=== PATIENT | female | born 1975 | race Caucasian/White ===

== ENCOUNTER 2016-10-06 04:17 | Emergency (ER) | payer BC ==
[~2016-10-06] VITALS: Ht 165.1 cm; Wt 74.8 kg
[~2016-10-06 04:17] MED LIST: CIPRO 500MG TA500 MG PO; METFORMIN500 MG PO; NAPROSYN500 M1 PO; NOMEDS XX; ROBAXIN-750750 MG PO
[2016-10-06] MEDS ORDERED: LISINOPRIL10 MG PO (04:28)
--- NOTE | 2016-10-06 05:51 | Emergency Room Report ---
History of Present Illness Time Seen by [id number] Presenting Problem in Triage Pt arrived:Walked Presenting Problem:PATIENT REPORTS SHE FELL DOWN 4 STEPS, STATES SHE WAS WEARING FLIP FLOPS AND HER FEET GOT SLIPPERY. 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 N Clinical Suspician of Infection? Y Mental Status: 1 - Regular (Normal Baseline) Sepsis Risk:Possible Sepsis Risk Have you (or family members/close friends) recently traveled outside the [place]? N If Yes, where/when: Have you had exposure to infectious disease within the past month? TB? Other? 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 No Angina: Yes NV: No Hypertension? Yes Hyperlipidemia? Yes CHF? No DVT? No PE? No COPD? No Asthma? Yes Anemia? No GERD? No Gastric ulcers? No GI Bleed? No Hernia? No Thyroid Problems? No Hypothyroidism? No CVA? No Seizures? No Diabetes? Yes Insulin Dependent: No Insulin Pump: No Home FSBS? No Renal Insuffiency? No End Stage Renal Disease? No UTI? Yes Stones? No BPH? No GB Disease: No Nephritic Syndrome? No Asplenia? No Hepatitis? No Sickle Cell Disease? No Arthritis? No Migraines? No Cataracts? No Glaucoma? No MRSA? No HIV? No TB? No Anxiety? No Depression? No Cancer? No More? No Immunization Hx DT/Tetanus 1-4 YRS Flu NEVER Pneumonia NEVER Surgical Hx Previous Surgery?Y Appendix X 2 Tubal Ligation BACK SURGERY X 2 WEB COORDINATOR Hx LMP 2 Weeks Ago Family History Family Hx Diabetes Yes CAD No Hypertension Yes Hyperlipidemia Yes Cancer Yes TB No Social History Smoking Hx Smoker: Current Every Day Smoker Tobacco: Yes Type Cigarettes Packs/day 1 1/2 - 2 Packs Alcohol Alcohol: No Drugs none Review of Systems All Other Systems Reviewed and Negative Constitutional denies fever Eyes denies drainage ENT denies: ear pain, epistaxis, throat pain. Respiratory denies cough, denies shortness of breath, denies wheezing Cardiovascular denies chest pain, denies palpitations, denies syncope Gastrointestinal see HPI, abdominal pain, denies nausea, denies vomiting Genitourinary denies: dysuria, frequency, hesitancy, hematuria. Musculoskeletal see HPI, back pain, denies joint pain, denies joint swelling, denies neck pain Skin denies rash Psychiatric/Neurological denies headache, denies seizure Physical Exam Vital Signs Vital Signs Date Time Temp Pulse Resp B/P Pulse O2 O2 Flow FiO2 Ox Delivery Rate 10/06 0537 84 20 121/71 97 10/06 0607 91 20 138/73 98 10/06 0601 20 10/06 0422 99.7 111 20 161/76 99 - WBC >12,000 or <4,000 or 10% bands? 2 or more SIRS Criteria Met? B/P:138/73 MAP:104 Creatinine >2.0? UA output<0.5ml/kg/hr for 2 hrs? Platelet count >100,000? Lactate >2.0mmol/1? INR >1.2 or PTT > than 60 sec? Evidence of Organ Dysfunction? Provider documented clinical suspician of infection? Y Sepsis Criteria Count: 2 Sepsis Risk: Possible Sepsis Risk General Appearance no apparent distress Eye Exam - bilateral eye PERRL, bilateral eye EOMI Ear, Nose, Throat normal ENT inspection Neck non-tender Respiratory Status No: respiratory distress, tender on palpation. Lung Sounds bilateral: lungs clear. 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 No Results/Orders Laboratory Tests 10/06/16 0600: Sodium 135 L, Potassium 4.3, Chloride 99, Carbon Dioxide 31, BUN 14, Creatinine 0.7, Estimated Creat Clear 122, Estimated GFR (MDRD) 91, Glucose 281 H, Calcium 9.0, Total Bilirubin 0.1 L, AST 11 L, ALT 21, Alkaline Phosphatase 97, Total Protein 7.6, Albumin 3.3 L, Globulin 4.3 H, Albumin/Globulin Ratio 0.8 L, Amylase 55, Lipase 197, WBC 11.1 H, RBC 4.71, Hgb 14.3, Hct 43.6, MCV 92.7, RDW 13.7, Plt Count 204, MPV 10.0, Gran % 70.9, Gran # 7.9 H, Lymphocytes % 22.6, Monocytes % 4.3, Eosinophils % 1.5, Basophils % 0.6, Lymphocytes # 2.5, Monocytes # 0.5, Eosinophils # 0.2, Basophils # 0.1, PUBS MCHC 32.7, MCH 30.3 Current Medication Orders Sig/Anuj Start time Last Medication Dose Route Stop Time Status Admin Morphine Sulfate 4 MG ONCE ONE 10/06 599 DC 10/06 IV 10/06 600 06 Ondansetron HCl 4 MG ONCE ONE 10/06 599 DC 10/06 IV 10/06 600 06 Sodium Chloride 10 ML PRN PRN 10/06 599 AC IV 10/07 550 Morphine Sulfate 0 .STK-MED ONE 10/06 557 DC .ROUTE Ondansetron HCl 0 .STK-MED ONE 10/06 556 DC .ROUTE Orders Procedure Date/time Status DIET-NOTHING BY MOUTH 10/[address] ABD & PELVIS W/ CONTRAST 10/[address] SCAN REQ 10/07 551 Complete CHEST-AP VIEW ONLY 10/07 551 Active IV SALINE LOCK 10/07 551 Active URINALYSIS/COMPLETE 10/07 551 Active LIPASE 10/07 551 Complete COMPLETE METABOLIC PANEL 10/07 551 Complete CBC WITH AUTO DIFF 10/07 551 Complete AMYLASE 10/[address] SCAN REQUEST 10/06 0429 Active XRAY/CT/US XRAY/CT/US 1 XRAY chest, pelvis XR interpretation by reviewed by me Xray Results no fracture seen XRAY/CT/US 2 CT abdomen, pelvis, L-spine CT interpretation by discussed w/radiologist Time results known: 722 CT Results abnormal (see report) Departure Departure Time of Disposition 723 Disposition DC Home or Self Care(routine) Clinical Impression Primary Impression: Lumbar transverse process fracture Qualifiers: Encounter type: initial encounter Fracture type: closed Qualified Code: S32.009A - Unspecified fracture of unspecified lumbar vertebra, initial encounter for closed fracture Condition STABLE Patient Instructions DI for Low Back Pain Additional Instructions ice and alt with heat and see pcp today for close follow up Discharge Counseling Counseled pt/family regarding diagnosis, test results, medications/RX, follow up needs ED Critical Care Critical Care No at 0798
[2016-10-06 06:07] LABS: HEMOGLOBIN 14.3 g/dL (12.2-16.2); LYMPH # 2.5 K/mm3 (0.7-4.5); LYMPH % 22.6 % (10-50.0)
--- NOTE | 2016-10-06 06:33 | RADIOLOGY REPORT PS360 ---
PELVIS AP ONLY HISTORY: Fall with injury and pain FALL ORDERING PHYSICIAN: Justice Alamo MD PATIENT AGE: 41 years COMPARISON: None FINDINGS: No fracture or dislocation is evident. Mild osteoarthritic changes are present involving both hips. No lytic or blastic change apparent. IMPRESSION: 1. No acute fracture. 2. Osteoarthritis of the hips
--- NOTE | 2016-10-06 06:38 | RADIOLOGY REPORT PS360 ---
CT LUMBAR SPINE W/O CONTRAST CLINICAL INDICATION: Left-sided low back pain following injury. Prior lumbar surgery FALL ORDERING PHYSICIAN: Justice Alamo MD PATIENT AGE: 41 years COMPARISON: None TECHNIQUE:Axial, sagittal, and coronal images are generated and reviewed without contrast FINDINGS: There is normal alignment. Nondisplaced fracture involving the left transverse process of L1 and L2. There is generalized spondylosis of the lumbar spine with mild multilevel degenerative disc disease. Mild bulging disc L3-L4 L4-L5 and L5-S1. There is been prior laminectomy at L5-S1 with soft tissue density present at the laminectomy site. Mild multilevel facet hypertrophic changes are present. Incidental note is made of a 4 cm left ovarian cyst. IMPRESSION: 1. Nondisplaced fractures left transverse process of L1 and L2. 2. Lumbar spondylosis with degenerative disc disease and facet hypertrophic change. 3. 4 cm left ovarian cyst. Follow-up recommended
[2016-10-06 07:34] VITALS: BP 127/77
--- NOTE | 2016-10-06 08:06 | RADIOLOGY REPORT PS360 ---
CHEST-AP VIEW ONLY HISTORY: Pain following injury fall ORDERING PHYSICIAN: Justice Alamo MD PATIENT AGE: 41 years COMPARISON: 12/20/2013 FINDINGS: The cardiomediastinal silhouette and pulmonary vascularity are within normal limits. Chronic changes are present with coarsening of the bronchovascular markings. No lobar consolidation or collapse. No evidence of pneumothorax. No acute bony anomalies. IMPRESSION: Chronic change, no acute finding.
--- NOTE | 2016-10-06 09:40 | RADIOLOGY REPORT PS360 ---
CT ABD PELVIS W/ CONTRAST CLINICAL INDICATION: Right lower quadrant pain following injury FALL ORDERING PHYSICIAN: Justice Alamo MD PATIENT AGE: 41 years COMPARISON: None TECHNIQUE: Axial images obtained with sagittal and coronal reformats. PROCEDURE: Oral Contrast: None IV Contrast: 75 mL Isovue-370. FINDINGS: Lower thorax: No acute finding Abdomen and pelvis: There is a small area of decreased attenuation in the left hepatic lobe along the fissure for the ligamentum teres probably due to focal fatty infiltration. Follow-up may confirm. The spleen, adrenal glands, pancreas, gallbladder, and kidneys have an unremarkable CT appearance. There is a tiny umbilical hernia containing fat. No intestinal obstruction or free air. No evidence of perforation or bowel wall hematoma. Pelvis: The uterus is enlarged at the fundal region with some heterogeneous enhancement and lobularity consistent with fibroid involvement. There is a 4.3 cm left ovarian cyst. Outpatient pelvic ultrasound follow-up suggested to confirm resolution. No free fluid evident. No evidence of appendicitis or diverticulitis. There is reported appendectomy. There is a tiny umbilical hernia containing fat. No abdominal wall contusion or hematoma. Nondisplaced fractures involving the left L1 and L2 transverse process. There is lumbar spondylosis. Mild osteoarthritic changes are present involving the hips. IMPRESSION: 1. No acute intra-abdominal or pelvic pathology. 2. Nondisplaced fractures of the left L1 and L2 transverse process. 3. Enlarged heterogeneous uterus consistent with fibroid involvement with 4 cm left ovarian cyst. Outpatient pelvic ultrasound suggested for follow-up. 4. Nondisplaced left L1 and L2 transverse process fracture
--- OUTSIDE RECORDS SUMMARY | 2016-10-06 21:02 | External Medical Summary Rpt ---
Author Author , AJIT FONG Address Unknown Phone [email or web address] Care Team Providers Care Metal Rolling Mill Operator Name Role Phone RUDDY MANZANO, RUDDY Unavailable Unavailable NATACHA RUDDY NATACHA, ARNOLD Unavailable Unavailable NATACHA BROWN HEA, BROWN HEA Unavailable Unavailable [facility] Unavailable Unavailable ANESTHESIA, [facility] ANESTHESIA [facility] Un[facility], [facility] Unavailable Unavailable [facility] Unavailable Unavailable Purpose Continuity of Care Document - 12-20-2013 through 2016 Problems Code Diagnosis DOS Provider Status M5126 [facility] 06-04-2015 [facility] [place] RAL DISC ANESTHESIA DISPLACEMEN T LUMBAR RGN 3674 PRESBYOPIA 11-27-2014 [facility] 4660 ACUTE 10-27-2014 RUDDY MANZANO BRONCHITIS 5110 PLEURISY 12-20-2013 [facility] MENTION INC EFFUS/CURRE NT TB S16.1XXA STRAIN OF MUSCLE, FASCIA AND TENDON AT NECK LEVEL, INIT S32.009A UNSP FRACTURE OF UNSP LUMBAR VERTEBRA, INIT FOR CLOS FX W19.XXXA UNSPECIFIED FALL, INITIAL ENCOUNTER Procedures Procedure DOS Code Location Performer Comment ANESTHESI 39376 [facility] A LUMBAR 6 [place] [facility] ANESTHESI NOS A OPHTH 73026 OSVALDO PRATT [facility] 5 XM&EVAL COMPRE NEW PT 1/> VST RADIOLOGI 05253 [facility] CHEST 2 INC INC VIEWS FRONTAL&L ATERAL Encounters Encounter Start End Date Code Location Performer Type Date OFFICE 45236 ASHAJAYRO RUDDY OUTPATIEN 5 5 NATACHA NATACHA T [facility]IT [facility] T
--- OUTSIDE RECORDS SUMMARY | 2016-10-06 21:02 | External Medical Summary Rpt ---
Demographics Preferred Language Lao Marital Status Unknown Buddhism Affiliation Unknown Race Unknown Ethnic Group Unknown Author Author AJIT Address Unknown Phone Immunization No patient found.
--- OUTSIDE RECORDS SUMMARY | 2016-10-06 21:02 | External Medical Summary Rpt ---
Author Author , AJIT FONG Address Unknown Phone [email or web address] Care Team Providers Care Field Superintendent Name Role Phone RUDDY MANZANO, RUDDY Unavailable Unavailable NATACHA RUDDY NATACHA, ARNOLD Unavailable Unavailable NATACHA BROWN HEA, BROWN HEA Unavailable Unavailable [facility] Unavailable Unavailable ANESTHESIA, [facility] ANESTHESIA [facility], [facility] Unavailable Unavailable [facility], [facility] Unavailable Unavailable Purpose Continuity of Care Document - 12-20-2013 through 2016 Problems Code Diagnosis DOS Provider Status M5126 [facility] 06-04-2015 [facility] [place] R[facility] DISC ANESTHESIA DISPLACEMEN T LUMBAR RGN 3674 PRESBYOPIA 11-27-2014 [facility] 4660 ACUTE 10-27-2014 RUDDY NATACHA BRONCHITIS 5110 PLEURISY 12-20-2013 [facility] MENTION INC EFFUS/CURRE NT TB Procedures Procedure DOS Code Location Performer Comment ANESTHESI 76004 [facility] A LUMBAR 6 [place] [facility] ANESTHESI NOS A OPHTH 75517 [facility] 5 XM&EVAL COMPRE NEW PT 1/> VST RADIOLOGI 19889 [facility] CHEST 2 INC INC VIEWS FRONTAL&L ATERAL Encounters Encounter Start End Date Code Location Performer Type Date OFFICE 77224 RUDDY FOX OUTPATIEN 5 5 NATACHA NATACHA T VISIT [facility]UTES [facility] T
--- OUTSIDE RECORDS SUMMARY | 2016-10-06 21:02 | External Medical Summary Rpt ---
Author Author AJIT Forrest, [employer] Address Unknown Phone Unavailable Results Amylase [Enzymatic activity/volume] in Serum or Plasma Observa Value Referen Units Interpr Notes Date tion ce etation Range Amylase 25 - 115 U/L Normal No Oct 06 [Enzymati informati 2017 6:00 c on in AM activity/ source volume] data in Serum or Plasma Comprehensive metabolic 2000 panel in Serum or Plasma Observa Value Referen Units Interpr Notes Date tion ce etation Range Albumin/G 1.1 - 1.8 No Low No Oct 06 lobulin informati informati 2017 6:00 [Mass on in on in AM ratio] in source source Serum or data data Plasma Albumin 3.4 - 5.0 gm/dL Low No Oct 06 [Mass/vol informati 2017 6:00 ume] in on in AM Serum or source Plasma data Alkaline 46 - 116 U/L Normal No Oct 06 phosphata informati 2017 6:00 se on in AM [Enzymati source c data activity/ volume] in Serum or Plasma Bilirubin 0.2 - 1.0 mg/dL Low No Oct 06 .total informati 2017 6:00 [Mass/vol on in AM ume] in source Serum or data Plasma Urea 7 - 18 mg/dL Normal No Oct 06 nitrogen informati 2017 6:00 [Mass/vol on in AM ume] in source Serum or data Plasma Calcium 8.5 - mg/dL Normal No Oct 06 [Mass/vol 10.1 informati 2017 6:00 ume] in on in AM Serum or source Plasma data Chloride 98 - 107 mmoL/L Normal No Oct 06 [Moles/vo informati 2016 6:00 lume] in on in AM Serum or source Plasma data Carbon 21.0 - mmoL/L Normal No Oct 06 dioxide, 32.0 informati 2017 6:00 total on in AM [Moles/vo source lume] in data Serum or Plasma Creatinin 0.55 - mg/dL Normal No Oct 06 e 1.02 informati 2017 6:00 [Mass/vol on in AM ume] in source Serum or data Plasma Creatinin 50 - 200 ML/MIN Normal No Oct 06 e renal informati 2016 6:00 clearance on in AM source predicted data by Cockcroft -Gault formula Estimated 59- ML/MIN No REFERENCE Oct 06 informati RANGE: 2017 6:00 glomerula on in >60 AM r source ML/MIN/1. filtratio data 73 SQUARE n rate METERSIf (GF this patient is -A merican, then multiply theresult by 1.210. Globulin 1.3 - 3.2 gm/dL High No Oct 06 [Mass/vol informati 2016 6:00 ume] in on in AM Serum source data Glucose 74 - 106 mg/dL High No Oct 06 [Mass/vol informati 2016 6:00 ume] in on in AM Serum or source Plasma data Potassium 3.5 - 5.1 mmoL/L Normal No Oct 062016 6:00 [Moles/vo on in AM lume] in source Serum or data Plasma Sodium 136 - 145 mmoL/L Low No Oct 06 [Moles/vo ati 2016 6:00 lume] in on in AM Serum or source Plasma data Aspartate 15 - 37 U/L Low No Oct 06 informati 2016 6:00 aminotran on in AM sferase source [Enzymati data c activity/ volume] in Serum or Plasma Alanine 12 - 78 U/L Normal No Oct 06 aminotran informati 2016 6:00 sferase on in AM [Enzymati source c data activity/ volume] in Serum or Plasma Protein 6.4 - 8.2 gm/dL Normal No Oct 06 [Mass/vol informati 2016 6:00 ume] in on in AM Serum or source Plasma data Lipase [Enzymatic activity/volume] in Serum or Plasma Observa Value Referen Units Interpr Notes Date tion ce etation Range Lipase 73 - 393 U/L Normal No Oct 06 [Enzymati informati 2016 6:00 c on in AM activity/ source volume] data in Serum or Plasma CBC W Auto Differential panel in Blood Observa Value Referen Units Interpr Notes Date tion ce etation Range Basophils 0 - 0.2 K/MM3 Normal No Oct 06 inform2016 6:00 [#/volume on in AM ] in source Blood by data Automated count Basophils 0.1 - 2.0 % Normal No Oct 06 / informati 2016 6:00 leukocyte on in AM s in source Blood by data Automated count Eosinophi 0.0 - 0.4 K/mm3 Normal No Oct 06 ls informati 2016 6:00 [#/volume on in AM ] in source Blood by data Automated count Eosinophi 0.1 - % Normal No Oct 06 ls/100 12.0 informati 2016 6:00 leukocyte on in AM s in source Blood by data Automated count Granulocy 1.8 - 7.8 K/mm3 High No Oct 06 pasquale informati 2016 6:00 [#/volume on in AM ] in source Blood by data Automated count Granulocy 37.0 - % Normal No Oct 06 pasquale/100 80.0 informati 2016 6:00 leukocyte on in AM s in source Blood by data Automated count Hematocri 37.0 - % Normal No Oct 06 t [Volume 47.0 informati 2016 6:00 on in AM Fraction] source of Blood data Hemoglobi 12.2 - g/dL Normal No Oct 06 n 16.2 informati 2016 6:00 [Mass/vol on in AM ume] in source Blood data Lymphocyt 0.7 - 4.5 K/mm3 Normal No Oct 06 es informati 2016 6:00 [#/volume on in AM ] in source Unspecifi data ed specimen by Automated count Lymphocyt 10 - 50.0 % Normal No Oct 06 es informati 2016 6:00 [#/volume on in AM ] in source Unspecifi data ed specimen by Automated count Erythrocy 27 - 31.2 pg Normal No Oct 06 te mean informati 2016 6:00 corpuscul on in AM ar source hemoglobi data n [Entitic mass] Erythrocy 31.8 - g/dl Normal No Oct 06 te mean 35.4 informati 2016 6:00 corpuscul on in AM ar source hemoglobi data n concentra tion [Mass/vol ume] by Automated count Erythrocy 82.2 - fl Normal No Oct 06 te mean 97.8 informati 2016 6:00 corpuscul on in AM ar volume source [Entitic data volume] by Automated count Monocytes 0.1 - 1.0 K/mm3 Normal No Oct 06 informati 2016 6:00 [#/volume on in AM ] in source Blood by data Automated count Monocytes 1.7 - 9.3 % Normal No Oct 06 /100 informati 2016 6:00 leukocyte on in AM s in source Blood by data Automated count Platelet 7.4 - fl Normal No Oct 06 mean 10.4 informati 2016 6:00 volume on in AM [Entitic source volume] data in Blood by Automated count Platelets 142 - 424 K/mm3 Normal No Oct 06 informati 2016 6:00 [#/volume on in AM ] in source Blood data Erythrocy 4.2 - 5.4 M/mm3 Normal No Oct 06 pasquale informati 2016 6:00 [#/volume on in AM ] in source Amniotic data fluid Erythrocy 11.5 - % Normal Oct 06 te 17.5 informati 2016 6:00 distribut on in AM ion width source [Entitic data volume] by Automated count Leukocyte 4.8 - K/MM3 High No Oct 06 s 10.8 informati 2016 6:00 [#/volume on in AM ] in source Blood data
--- OUTSIDE RECORDS SUMMARY | 2016-10-06 21:02 | External Medical Summary Rpt ---
Author Author , AJIT FONG Address Unknown Phone [email or web address] Care Team Providers Care Registered Nurse Practitioner Name Role Phone RUDDY MANZANO, RUDDY Unavailable Unavailable NATACHA RUDDY NATACHA, ARNOLD Unavailable Unavailable NATACHA BROWN HEA, BROWN HEA Unavailable Unavailable [facility] Unavailable Unavailable ANESTHESIA, [facility] ANESTHESIA [facility] Un[facility], RILEY SANTA Unavailable Unavailable [facility], [facility] Unavailable Unavailable Purpose Continuity of Care Document - 12-20-2013 through 2016 Problems Code Diagnosis DOS Provider Status M5126 [facility] 06-04-2015 [facility] [place] RAL DISC ANESTHESIA DISPLACEMEN T LUMBAR RGN [...] Procedure DOS Code Location Performer Comment ANESTHESI 07120 [facility] A LUMBAR 6 [place] [facility] ANESTHESI NOS A OPHTH 05997 OSVALDO PRATT [facility] 5 XM&EVAL COMPRE NEW PT 1/> VST RADIOLOGI 34056 [facility] CHEST 2 INC INC VIEWS FRONTAL&L ATERAL Encounters Encounter Start End Date Code Location Performer Type Date OFFICE 72856 ASHAJAYRO RUDDY OUTPATIEN 5 5 NATACHA NATACHA T VISIT [facility]ES [facility] T
--- OUTSIDE RECORDS SUMMARY | 2016-10-06 21:02 | External Medical Summary Rpt ---
Author Author , AJIT FONG Address Unknown Phone [email or web address] Care Team Providers Care Communications Systems Engineer Name Role Phone RUDDY MANZANO, RUDDY Unavailable Unavailable NATACHA RUDDY NATACHA, ARNOLD Unavailable Unavailable NATACHA BROWN HEA, BROWN HEA Unavailable Unavailable [facility] Unavailable Unavailable ANESTHESIA, [facility] ANESTHESIA [facility], [facility] Unavailable Unavailable [facility], [facility] Unavailable Unavailable Purpose Continuity of Care Document - 12-20-2013 through 2016 Problems Code Diagnosis DOS Provider Status M5126 [facility] 06-04-2015 [place] [facility] [place] RAL DISC ANESTHESIA DISPLACEMEN T LUMBAR RGN 3674 PRESBYOPIA 11-27-2014 [facility] 4660 ACUTE 10-27-2014 RUDDY NATACHA BRONCHITIS 5110 PLEURISY 12-20-2013 [facility] MENTION INC EFFUS/CURRE NT TB Procedures Procedure DOS Code Location Performer Comment ANESTHESI 42431 [facility] A LUMBAR 6 [place] [facility] ANESTHESI NOS A OPHTH 03709 [facility] 5 XM&EVAL COMPRE NEW PT 1/> VST RADIOLOGI 70297 [facility] EXAM [facility] CHEST 2 INC INC VIEWS FRONTAL&L ATERAL Encounters Encounter Start End Date Code Location Performer Type Date OFFICE 91550 RUDDY FOX OUTPATIEN 5 5 NATACHA NATACHA T VISIT 15 [facility]UTES [facility] T
--- OUTSIDE RECORDS SUMMARY | 2016-10-06 21:02 | External Medical Summary Rpt ---
Demographics Preferred Language Tuvaluan Marital Status Unknown Cheondoism Affiliation Unknown Race Unknown Ethnic Group Unknown Author Author AJIT Address Unknown Phone Immunization No patient found.
--- OUTSIDE RECORDS SUMMARY | 2016-10-06 21:02 | External Medical Summary Rpt ---
Author Author AJIT Forrest, AJIT Art[employer] Organization [employer] Address Unknown Phone Unavailable [...]
== END 2016-10-06 07:36 | disposition home or self-care (01) ==
LOC: ER 04:17
PROVIDERS: Emergency Medicine
DX: S32.009A Unspecified fracture of unspecified lumbar vertebra, initial encounter for closed fracture (principal); I10 Essential (primary) hypertension; Z72.0 Tobacco use; W10.9XXA Fall (on) (from) unspecified stairs and steps, initial encounter; Y92.9 Unspecified place or not applicable
CPT/HCPCS: J2405

== ENCOUNTER → 2016-10-13 | Outpatient (CLI) | payer MEDICAID ==
[~2016-10-13] MED LIST changes: +LISINOPRIL10 MG PO
--- NOTE | 2016-10-14 00:17 | RADIOLOGY REPORT PS360 ---
US PELVIS-TRANSVAGINAL ONLY: HISTORY: OVARIAN CYSTS dysfunctional uterine bleeding. Mass seen on CT bilateral tubal ligation Patient Age: 41 years: Female Ordering Physician: HALLE SHANKAR TECHNIQUE: Transvaginal pelvic ultrasound COMPARISON :Previous CT abdomen and pelvis 10/06/2016 : FINDINGS :------- UTERUS: is mild enlarged 9.7 cm in length x 4.1 cm AP x 5.9 cm transverse. 2 fibroids identified:. ... Fibroid A at anterior myometrium measuring 2 cm size 2.1 cm. ... Fibroid B at the fundus measures 2.8cm X 2.2 cm. Endometrial stripe measures 4.5 mm. Generous Nabothian cyst along cervical canal with the largest measuring nearly 1.5 cm & another measuring just over 1 cm. RIGHT OVARY measures 2.25cm x 1.35 x 1.4 cm. LEFT OVARY measures 5cm centimeters x 3.2 cm x 4.9 cm. The debris-filled moderately thick walled cystic mass at left ovary, with internal echoes & debris. It measures up to 4.25 cm in length x 3 cm x 4.2 cm. No fluid in cul-de-sac IMPRESSION: -------- 1 . The Enlarged Left Ovary measured up to 5 cm: Left ovary contains a prominent, debris-filled cyst with moderately thick wall . Measuring up to 4.25 cm. Requires [employer] evaluation 2.. Uterus borderline enlarged. Contains 2 uterine fibroids... The largest fibroid measuring up to 2.8 cm at the fundus the other 2.1 cm anterior myometrial 3 prominent nabothian cyst. No fluid in cul-de-sac
== END ==
LOC: RAD 13:44
DX: N83.202 Unspecified ovarian cyst, left side (principal)